=== PATIENT | female | born 1955 | race Caucasian/White ===

== ENCOUNTER 2016-10-22 05:21 | Inpatient (IN) | payer OTHER ==
--- NOTE | 2016-10-06 16:47 | NUR ---
JOINT REPLACEMENT PREOP CLASS PATIENT ATTENDED JOINT REPLACEMENT PREOP CLASS. CASE MANAGEMENT CONTACT INFORMATION PROVIDED. EDUCATION WAS PROVIDED REGARDING WHAT TO EXPECT BEFORE, DURING AND AFTER SURGERY. INCLUDING: OVERVIEW OF ANATOMY AND PHYSIOLOGY HOSPITAL TREATMENT SCHEDULE THERAPY DEMONSTRATION CASE MANAGEMENT RESPONSIBILITIES DISCHARGE PLANNING EQUIPMENT NEEDS JOINT REPLACEMENT WORKBOOK ANTI-COAGULATION SURGERY STRONG NUTRITIONAL PROTOCOL DISCHARGE INSTRUCTIONS [facility] PATIENT PORTAL, WITH INSTRUCTIONS CJR AND PREOP SURVERY PREOP BATHING- CHG GIVEN ALL PATIENT'S QUESTIONS ANSWERED TO THEIR SATISFACTION. PATIENTS AND COACHES ENCOURAGED TO CALL WITH ANY ADDITIONAL QUESTIONS OR CONCERNS. CM FOLLOWING FOR TRANSITIONAL CARE PLANNING NEEDS DURING HOSPITALIZATION.
[~2016-10-22] VITALS: Ht 177.8 cm; Wt 79.8 kg
[2016-10-22] VITALS (23 sets, daily range): BP systolic 98–128; BP diastolic 54–69; PULSE 56–88; RESP 14–20; TEMP 97.2–97.6; O2SAT 90–98; Ht 177.8 cm; Wt 79.8 kg
[~2016-10-22 05:21] MED LIST: ACET-2890 PO; ASCO-296 PO; ASPI-730 PO; CHOL100092 PO; DILT120C47 PO; HYDR-4246 PO; LEVO100T4 PO; NITR0.4T SL; POLY17PO6 PO; VITA1CAP PO; ZOLP5TAB2 PO
--- OUTSIDE RECORDS SUMMARY | 2016-10-22 05:26 | XMS REPORT ---
Author Author [facility]. Organization [facility] Address [address] [place] [address] Phone [phone] Summary purpose CCDA Sent to [facility] Chief Complaint and Reason for Visit No authorized Reason for Visit (Admitting Diagnosis) is available for this visit. Problem list No authorized problems tracked for continuity of care are available for this visit. Encounters No authorized problems tracked for encounter diagnoses are available for this visit. Medications No medications recorded for this patient visit Allergies, adverse reactions, alerts Allergen Category Ingredient Status Reaction Severity Onset No Known Allergies No Known Allergies No Known Allergies Active Immunizations No immunizations recorded for this patient visit Relevant diagnostic tests and/or laboratory data RESULTS Chemistry Group [id number]:00:00 Result Normal Range Units Total Protein 6.6 6.3-8.2 g/dl Albumin L 3.2 3.5-5.0 g/dl Alk Phos 82 38-126 U/L AST 23 14-36 U/L ALT 25 11-66 U/L T Bili .8 0.2-1.3 mg/dl D Bili 0.0 0.0-0.3 mg/dl I Bili .4 0.0-1.1 mg/dl History of procedures Procedure Code Code Type Description Date Performed Performing Physician 98724 CPT-4 HEPATIC FUNCTION PANEL 03-04-2016 KIRT GARCIA Functional status No functional or cognitive status observations are available for this visit. Vital signs No authorized vital signs are available for this visit. Social history No Social History or smoking status observations were recorded for this visit. ( Unknown if ever smoked.) Treatment Plan No treatment plan text is available for this visit. Hospital discharge instructions No discharge instruction text is available for this visit.
--- OUTSIDE RECORDS SUMMARY | 2016-10-22 05:26 | XMS REPORT ---
Author Author [facility]. Organization [facility] Address [address] [place] [address] Phone [phone] Summary purpose CCDA Sent to [facility] Chief Complaint and Reason for Visit No [...] visit Relevant diagnostic tests and/or laboratory data No authorized results are available for this patient visit History of procedures No procedures recorded for this patient visit. Functional status No functional or cognitive status [...]
--- OUTSIDE RECORDS SUMMARY | 2016-10-22 05:26 | XMS REPORT ---
Author Author [facility] Organization [facility] Address [address] [place] [address] Phone [phone] Summary purpose CCDA Sent to [facility] Chief Complaint and Reason for Visit Admit Diagnosis 1 MICROSCOPIC HEMATURIA Problem list No authorized problems tracked for continuity of care are available for this visit. Encounters No authorized problems tracked for encounter diagnoses are available for this visit. Medications No home medications recorded for this patient visit Allergies, adverse reactions, alerts Allergen Category Ingredient Status Reaction Severity Onset No Known Allergies No Known Allergies No Known Allergies Active Immunizations No immunizations recorded for this patient visit Relevant diagnostic tests and/or laboratory data RESULTS Urinalysis [id number]:45:00 Result Normal Range Units Site Voided Result Amended on 2014-12-21 at 14:34:00. Previous status was FR. Color Yellow Result Amended on 2014-12-21 at 14:34:00. Previous status was FR. Urine Appearance Slightly cloudy Specific [place] 1.015 1.005-1.030 Result Amended on 2014-12-21 at 14:34:00. Previous status was FR. pH 7.5 5.0-9.0 Result Amended on 2014-12-21 at 14:34:00. Previous status was FR. Protein Negative Negative Result Amended on 2014-12-21 at 14:34:00. Previous status was FR. Glucose Negative Negative Result Amended on 2014-12-21 at 14:34:00. Previous status was FR. Ketones Negative Negative Result Amended on 2014-12-21 at 14:34:00. Previous status was FR. Bilirubin Negative Negative Result Amended on 2014-12-21 at 14:34:00. Previous status was FR. Blood Negative Negative Result Amended on 2014-12-21 at 14:34:00. Previous status was FR. Nitrite Negative Negative Result Amended on 2014-12-21 at 14:34:00. Previous status was FR. Urobilinogen 0.2 0.20 mg/dl Result Amended on 2014-12-21 at 14:34:00. Previous status was FR. Leukocyte Negative Negative Result Amended on 2014-12-21 at 14:34:00. Previous status was FR. Urine RBC 0-2 Urinalysis with Microscopic [id number]:45:00 Result Normal Range Units Site Voided Result Amended on 2014-12-21 at 14:34:00. Previous status was FR. Color Yellow Result Amended on 2014-12-21 at 14:34:00. Previous status was FR. Urine Appearance Slightly cloudy Specific [place] 1.015 1.005-1.030 Result Amended on 2014-12-21 at 14:34:00. Previous status was FR. pH 7.5 5.0-9.0 Result Amended on 2014-12-21 at 14:34:00. Previous status was FR. Protein Negative Negative Result Amended on 2014-12-21 at 14:34:00. Previous status was FR. Glucose Negative Negative Result Amended on 2014-12-21 at 14:34:00. Previous status was FR. Ketones Negative Negative Result Amended on 2014-12-21 at 14:34:00. Previous status was FR. Bilirubin Negative Negative Result Amended on 2014-12-21 at 14:34:00. Previous status was FR. Blood Negative Negative Result Amended on 2014-12-21 at 14:34:00. Previous status was FR. Nitrite Negative Negative Result Amended on 2014-12-21 at 14:34:00. Previous status was FR. Urobilinogen 0.2 0.20 mg/dl Result Amended on 2014-12-21 at 14:34:00. Previous status was FR. Leukocyte Negative Negative Result Amended on 2014-12-21 at 14:34:00. Previous status was FR. Urine RBC 0-2 History of procedures Procedure Code Code Type Description Date Performed Performing Physician 79083 CPT-4 URINALYSIS AUTO W/SCOPE 12-21-2014 KIRT GARCIA Functional status No functional or [...]
--- OUTSIDE RECORDS SUMMARY | 2016-10-22 05:26 | XMS REPORT ---
Author Author [facility]. Organization [facility] Address [address] [place] [address] Phone [phone] Summary purpose CCDA Sent to [facility] Chief Complaint and Reason for Visit [...] Relevant diagnostic tests and/or laboratory data RESULTS CBC :25:00 Result Normal Range Units WBC 7.29 4.8-10.8 x103/mm3 Neutrophil % 51.0 50-70 % Lymph % 35.4 20-50 % [place] % H 10.3 1.0-9.0 % Eosinophil % 2.3 0-4 % Basophil % 1.0 0-2 % Neutrophil # 3.72 3.0-7.0 x103/mm3 Lymph # 2.58 1.0-4.0 x103/mm3 [place] # 0.75 0.0-0.8 x103/mm3 Eosinophil # 0.17 0-0.5 x103/mm3 Basophil # 0.07 0-0.2 x103/mm3 RBC L 3.69 4.20-5.40 x103/mm3 HGB L 11.4 12.0-16.0 g/dl HCT L 35.7 37.0-47.0 % MCV 96.7 81-99 FL MCH 30.9 27.0-31.0 pg MCHC L 31.9 32.0-36.0 g/dl RDW 13.5 12-15 % Platelet 271 150-400 x103/mm3 MPV H 10.3 6.0-10.0 FL Chemistry Group [id number]:00 Result Normal Range Units Sodium 141 134-145 mmol/L Potassium 4.5 3.6-5.0 mmol/L Chloride 104 98-107 mmol/L CO2 26 22-30 mmol/L Glucose 95 75-110 mg/dl BUN 17 9-20 mg/dl Creatinine L .76 0.8-1.7 mg/dl eGFR 77 ml/min. Total Protein 7.0 6.3-8.2 g/dl Albumin 3.6 3.5-5.0 g/dl Calcium 9.3 8.4-10.2 mg/dl Alk Phos 109 38-126 U/L AST 26 14-36 U/L ALT 26 11-66 U/L T Bili .4 0.2-1.3 mg/dl A/G Ratio 1.0 Ratio History of procedures No procedures recorded for [...]
--- OUTSIDE RECORDS SUMMARY | 2016-10-22 05:26 | XMS REPORT ---
Author Author [facility]. Organization [facility] Address [address] [place] [address] Phone [phone] Summary purpose CCDA Sent to [facility] Chief Complaint and Reason for Visit [...] for this patient visit History of procedures Procedure Code Code Type Description Date Performed Performing Physician 57366 CPT-4 ROUTINE VENIPUNCTURE 05-27-2015 KIRT GARCIA Functional status No functional or [...]
--- OUTSIDE RECORDS SUMMARY | 2016-10-22 05:27 | XMS REPORT ---
Author Author [facility]. Organization [facility] Address [address] [place] [address] Phone [phone] Summary purpose CCDA Sent to [facility] Chief Complaint and Reason for Visit No [...] Code Type Description Date Performed Performing Physician 18599 CPT-4 PT EVALUATION 04-05-2015 MADIHA LAINEZ [facility] 23382 CPT-4 ELECTRICAL STIMULATION 04-05-2015 [facility] 25568 CPT-4 ULTRASOUND THERAPY 04-05-2015 [facility] 61649 CPT-4 ELECTRICAL STIMULATION 04-08-2015 [facility] [place] [address] CPT-4 ELECTRICAL STIMULATION 04-11-2015 [facility] 82014 CPT-4 ULTRASOUND THERAPY 04-08-2015 [facility] 18907 CPT-4 ULTRASOUND THERAPY 04-11-2015 [facility] Functional status No functional or cognitive status [...]
--- OUTSIDE RECORDS SUMMARY | 2016-10-22 05:27 | XMS REPORT ---
Author Author [facility]. Organization [facility] Address [address] [place] [address] Phone [phone] Summary purpose CCDA Sent to [facility] Chief Complaint and Reason for Visit [...]
--- OUTSIDE RECORDS SUMMARY | 2016-10-22 05:27 | XMS REPORT ---
Author Author [facility] Organization [facility] Address [address] [place] [address] Phone [phone] Summary purpose CCDA Sent to [facility] Chief Complaint and Reason for Visit No [...] diagnostic tests and/or laboratory data RESULTS CBC :40:00 Result Normal Range Units WBC 5.38 4.8-10.8 x103/mm3 Neutrophil % L 47.0 50-70 % Lymph % 42.0 20-50 % [place] % 8.9 1.0-9.0 % Eosinophil % 1.5 0-4 % Basophil % 0.6 0-2 % Neutrophil # L 2.53 3.0-7.0 x103/mm3 Lymph # 2.26 1.0-4.0 x103/mm3 [place] # 0.48 0.0-0.8 x103/mm3 Eosinophil # 0.08 0-0.5 x103/mm3 Basophil # 0.03 0-0.2 x103/mm3 RBC 4.27 4.20-5.40 x103/mm3 HGB 12.8 12.0-16.0 g/dl HCT 40.2 37.0-47.0 % MCV 94.1 81-99 FL MCH 30.0 27.0-31.0 pg MCHC L 31.8 32.0-36.0 g/dl RDW 13.6 12-15 % Platelet 241 150-400 x103/mm3 MPV 9.7 6.0-10.0 FL Chemistry Group [id number]:00 Result Normal Range Units Sodium 144 134-145 mmol/L Potassium 4.6 3.6-5.0 mmol/L Chloride 102 98-107 mmol/L CO2 27 22-30 mmol/L Glucose 90 75-110 mg/dl BUN 15 9-20 mg/dl Creatinine L .79 0.8-1.7 mg/dl eGFR 74 ml/min. Calcium 9.4 8.4-10.2 mg/dl Special Chemistry Group [id number]:00 Result Normal Range Units TSH 1.65 0.50-6.00 uIU/mL History of procedures No procedures recorded for [...]
--- OUTSIDE RECORDS SUMMARY | 2016-10-22 05:27 | XMS REPORT ---
Author Author [facility]. Organization [facility] Address [address] [place] [address] Phone [phone] Summary purpose CCDA Sent to [facility] Chief Complaint and Reason for Visit Admit Diagnosis 1 CARDIAC DYSRHYTHMIAS NEC Problem list No authorized problems tracked for [...] diagnostic tests and/or laboratory data RESULTS CBC :20:00 Result Normal Range Units WBC 6.28 4.8-10.8 x103/mm3 Neutrophil % 55.0 50-70 % Lymph % 34.2 20-50 % [place] % 8.6 1.0-9.0 % Eosinophil % 1.9 0-4 % Basophil % 0.3 0-2 % Neutrophil # 3.45 3.0-7.0 x103/mm3 Lymph # 2.15 1.0-4.0 x103/mm3 [place] # 0.54 0.0-0.8 x103/mm3 Eosinophil # 0.12 0-0.5 x103/mm3 Basophil # 0.02 0-0.2 x103/mm3 RBC L 4.07 4.20-5.40 x103/mm3 HGB 12.5 12.0-16.0 g/dl HCT 38.5 37.0-47.0 % MCV 94.6 81-99 FL MCH 30.7 27.0-31.0 pg MCHC 32.5 32.0-36.0 g/dl RDW 14.1 12-15 % Platelet 231 150-400 x103/mm3 MPV 10.0 6.0-10.0 FL Chemistry Group :20:00 Result Normal Range Units Sodium 143 134-145 mmol/L Potassium 4.2 3.6-5.0 mmol/L Chloride 106 98-107 mmol/L CO2 27 22-30 mmol/L Glucose 91 75-110 mg/dl BUN 20 9-20 mg/dl Creatinine .8 0.8-1.7 mg/dl Calcium 9.3 8.4-10.2 mg/dl Special Chemistry Group [id number]:00 Result Normal Range Units TSH 0.97 0.50-6.00 uIU/mL History of procedures Procedure Code Code Type Description Date Performed Performing Physician 84667 CPT-4 METABOLIC PANEL TOTAL CA 12-17-2014 KIRT GARCIA 12826 CPT-4 ASSAY THYROID STIM HORMONE 12-17-2014 KIRT GARCIA 50706 CPT-4 COMPLETE CBC AUTOMATED 12-17-2014 KIRT GARCIA Functional status No functional or [...]
--- OUTSIDE RECORDS SUMMARY | 2016-10-22 05:27 | XMS REPORT ---
Author Author [facility]. Organization [facility] Address [address] [place] [address] Phone [phone] Summary purpose CCDA Sent to [facility] Chief Complaint and Reason for [...] diagnostic tests and/or laboratory data RESULTS CBC :10:00 Result Normal Range Units WBC L 4.42 4.8-10.8 x103/mm3 Neutrophil % H 77.1 50-70 % Lymph % L 15.6 20-50 % [place] % 6.6 1.0-9.0 % Eosinophil % 0.5 0-4 % Basophil % 0.2 0-2 % Neutrophil # 3.41 3.0-7.0 x103/mm3 Lymph # L 0.69 1.0-4.0 x103/mm3 [place] # 0.29 0.0-0.8 x103/mm3 Eosinophil # 0.02 0-0.5 x103/mm3 Basophil # 0.01 0-0.2 x103/mm3 RBC 4.41 4.20-5.40 x103/mm3 HGB 13.6 12.0-16.0 g/dl HCT 41.3 37.0-47.0 % MCV 93.7 81-99 FL MCH 30.8 27.0-31.0 pg MCHC 32.9 32.0-36.0 g/dl RDW 13.9 12-15 % Platelet 211 150-400 x103/mm3 MPV 9.7 6.0-10.0 FL Chemistry Group :10:00 Result Normal Range Units Sodium 140 134-145 mmol/L Potassium 3.7 3.6-5.0 mmol/L Chloride 103 98-107 mmol/L CO2 26 22-30 mmol/L Glucose H 117 75-110 mg/dl BUN 18 9-20 mg/dl Creatinine .84 0.8-1.7 mg/dl eGFR 69 ml/min. Total Protein 7.7 6.3-8.2 g/dl Albumin 3.8 3.5-5.0 g/dl Calcium 8.7 8.4-10.2 mg/dl Alk Phos 120 38-126 U/L AST H 82 14-36 U/L ALT 47 11-66 U/L T Bili H 1.6 0.2-1.3 mg/dl A/G Ratio 1.0 Ratio Special Chemistry Group :10:00 Result Normal Range Units Troponin I < 0.06 ng/ml NEGATIVE - 0.06-0.30 ng/ml INCONCLUSIVE - 0.31-0.64 ng/ml; Suggest Repeating in 2-4 hours POSITIVE - >0.64 ng/ml; Probable AMI History of procedures Procedure Code Code Type Description Date Performed Performing Physician 04061 CPT-4 COMPLETE CBC, AUTOMATED 02-26-2016 LISA CEDEÑO 50883 CPT-4 COMPREHEN METABOLIC PANEL 02-26-2016 LISA CEDEÑO 52563 CPT-4 ASSAY OF TROPONIN, QUANT 02-26-2016 LISA CEDEÑO Functional status No functional or cognitive status [...]
--- OUTSIDE RECORDS SUMMARY | 2016-10-22 05:27 | XMS REPORT | Continuity of Care Document ---
Author Author [facility] Organization [facility] Address Unknown Phone Unavailable Allergies Active Description Code Type Severity Reaction Onset Reported/Identified Relationship to Patient Clinical Status Yes No Known Allergies 745832 3 N/A N/A Yes No Known Allergies 45196238 NK N/A N/A 11/11/2012 Confirmed or Verified Medications Problems Date Dx Coded Attending Type Code Diagnosis Diagnosed By 11/11/2012 KIRT WORRELL MD 211.3 BENIGN NEOPLASM LG BOWEL 11/11/2012 KIRT WORRELL MD 455.6 HEMORRHOIDS NOS 11/11/2012 KIRT WORRELL MD 562.10 DIVERTICULO COLON NO HEM 11/11/2012 KIRT WORRELL MD 569.89 INTESTINAL DISORDERS NEC 11/11/2012 KIRT WORRELL MD V76.51 SCREENING MAL NASEEM COLON 12/17/2014 KIRT WORRELL MD 427.89 CARDIAC DYSRHYTHMIAS NEC 12/21/2014 MÓNICA ARANA, SARAI Venegas 599.72 MICROSCOPIC HEMATURIA 04/20/2015 MIGEL ROMERO MD, MADIHA Venegas M79.603 Pain in arm, unspecified 05/27/2015 KIRT WORRELL MD Z00.6 Encntr for exam for nrml cmprsn and ctrl in cln[facility] prog 06/04/2015 W M25.512 Left shoulder pain 08/06/2015 W M25.512 Left shoulder pain 12/24/2015 KIRT WORRELL MD E05.00 Thyrotoxicosis w diffuse goiter w/o thyrotoxic crisis 12/24/2015 KIRT WORRELL MD N20.9 Urinary calculus, unspecified 12/24/2015 KIRT WORRELL MD Z90.5 Acquired absence of kidney 01/09/2016 Kirt Worrell Ot N64.59 OTHER SIGNS AND SYMPTOMS IN BREAST 02/26/2016 LISA PERRY D R10.84 Generalized abdominal pain 03/04/2016 KIRT WORRELL MD R10.84 Generalized abdominal pain 05/15/2016 Kirt Worrell Ot N64.59 OTHER SIGNS AND SYMPTOMS IN BREAST Procedures Code [place] [address] COLONOSCOPY AND BIOPSY KIRT WORRELL MD 11/11/2012 56841 LESION REMOVE COLONOSCOPY KIRT WORRELL MD 11/11/2012 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 CITRATE INJECITON KIRT WORRELL MD 11/11/2012 81328 METABOLIC PANEL TOTAL CA KIRT WORRELL MD 12/17/2014 88589 ASSAY THYROID STIM HORMONE KIRT WORRELL MD 12/17/2014 65705 COMPLETE CBC, AUTOMATED KIRT WORRELL MD 12/17/2014 08665 URINALYSIS, AUTO W/SCOPE KIRT WORRELL MD 12/21/2014 83943 PT EVALUATION MIGEL ROMERO MD, MADIHA Venegas 04/05/2015 04908 ELECTRICAL STIMULATION MIGEL ROMERO MD, MADIHA Venegas 04/05/2015 27705 ULTRASOUND THERAPY MIGEL ROMERO MD, MADIHA Venegas 04/05/2015 07472 ELECTRICAL STIMULATION MIGEL ROMERO MD, MADIHA Venegas 04/08/2015 74499 ULTRASOUND THERAPY MIGEL ROMERO MD, MADIHA Venegas 04/08/2015 72514 ELECTRICAL STIMULATION MIGEL ROMERO MD, MADIHA Venegas 04/11/2015 84522 ULTRASOUND THERAPY MIGEL ROMERO MD, MADIHA Venegas 04/11/2015 04720 ROUTINE VENIPUNCTURE KIRT WORRELL MD 05/27/2015 20579 X-RAY EXAM OF SHOULDER 06/04/2015 41017 OFFICE/OUTPATIENT VISIT NEW 06/04/2015 95348 METABOLIC PANEL TOTAL CA KIRT WORRELL MD 12/24/2015 96543 ASSAY THYROID STIM HORMONE KIRT WORRELL MD 12/24/2015 98411 COMPLETE CBC, AUTOMATED KIRT WORRELL MD 12/24/2015 00210 COMPREHEN METABOLIC PANEL PRABHAKAR PERRYI L 02/26/2016 25360 ASSAY OF TROPONIN, QUANT GALA ARANA LISA Lou 02/26/2016 63275 COMPLETE CBC, AUTOMATED GALA ARANA LISA Blake 02/26/2016 67319 HEPATIC FUNCTION PANEL JOSE LEE, KIRT R 03/04/2016 Results Test Result Range CBC - 05/03/12 11:02 MEAN CELL HGB 30.1 pg 27.0-33.0 MEAN CELL HGB CONCENTRATION 32.0 g/dl 32.0-36.0 MEAN CELL VOLUME 94.1 fl 80.0-100.0 RED BLOOD CELL 4.38 m/cumm 4.00-6.00 RED CELL DISTRIBUTION WIDTH 14.3 % 11.0- 15.6 WHITE BLOOD CELL 7.6 k/cumm 5.0-10.0 HEMOGLOBIN 13.2 gm/dL 12.0-16.0 HEMATOCRIT 41.2 % 37.0-47.0 PLATELET COUNT 231 k/cumm 150-450 METABOLIC PANEL, BASIC - 05/03/12 11:02 POTASSIUM 3.9 mmol/L 3.5-5.3 EST GFR (MDRD) > 60 mL/min > 59 ANION GAP 8 mmol/L 5-15 EST CrCl (CG) > 60 mL/min > 59 GLUCOSE 91 mg/dL 70-99 CALCIUM 9.2 mg/dL 8.5-10.1 BLOOD UREA NITROGEN 14 mg/dL 7-20 CREATININE 0.9 mg/dL 0.6-1.0 SODIUM 143 mmol/L 135-148 CHLORIDE 108 mmol/L 98-110 CARBON DIOXIDE 27 mmol/L 21-32 LIPID PANEL - 05/03/12 11:02 CHOLESTEROL/HDL RATIO 5.0 < 5.0 LDL CHOLESTEROL 106 mg/dL < 100 VLDL CHOLESTEROL 25 mg/dL < 30 TRIGLYCERIDES 123 mg/dL < 150 CHOLESTEROL 164 mg/dL < 200 HDL CHOLESTEROL 33 mg/dL > 39 THYROID STIM HORMONE (TSH) - 05/03/12 11:02 THYROID STIM HORMONE (TSH) 1.98 uIU/mL 0.34-4.82 Basic Metabolic Panel - 12/17/14 14:06 Sodium 143 MMOLL 134-145 Potassium 4.2 MMOLL 3.6-5.0 Chloride 106 MMOLL 98-107 CO2 27 MMOLL 22-30 Glucose 91 MG/DL 75-110 BUN 20 MG/DL 9-20 Creatinine .8 MG/DL 0.8-1.7 Calcium 9.3 MG/DL 8.4-10.2 CBC - 12/17/14 14:06 Eos # 0.12 x10^3 0-0.5 Eos % 1.9 % 0-4 HCT 38.5 % 37.0-47.0 HGB 12.5 G/DL 12.0-16.0 Lymph # 2.15 x10^3 1.0-4.0 Lymph % 34.2 % 20-50 MCH 30.7 PG 27.0-31.0 MCHC 32.5 G/DL 32.0-36.0 MCV 94.6 FL 81-99 Shannon # 0.54 x10^3 0.0-0.8 [place] % 8.6 % 1.0-9.0 MPV 10.0 FL 6.0-10.0 Platelet 231 x10^3 150-400 RBC 4.07 x10^3 4.20-5.40 RDW 14.1 % 12-15 WBC 6.28 x10^3 4.8-10.8 Baso # 0.02 x10^3 0-0.2 Baso % 0.3 % 0-2 Neut % 55.0 % 50-70 Neut # 3.45 x10^3 3.0-7.0 TSH - 12/17/14 14:45 TSH 0.97 UIUML 0.50-6.00 Basic Metabolic Panel - 12/24/15 14:10 Sodium 144 MMOLL 134-145 Potassium 4.6 MMOLL 3.6-5.0 Chloride 102 MMOLL 98-107 CO2 27 MMOLL 22-30 Glucose 90 MG/DL 75-110 BUN 15 MG/DL 9-20 Creatinine .79 MG/DL 0.8-1.7 Calcium 9.4 MG/DL 8.4-10.2 EGFR 74 MLMIN TSH - 12/24/15 14:10 TSH 1.65 UIUML 0.50-6.00 CBC - 12/24/15 14:11 Eos # 0.08 x10^3 0-0.5 Eos % 1.5 % 0-4 HCT 40.2 % 37.0-47.0 HGB 12.8 G/DL 12.0-16.0 Lymph # 2.26 x10^3 1.0-4.0 Lymph % 42.0 % 20-50 MCH 30.0 PG 27.0-31.0 MCHC 31.8 G/DL 32.0-36.0 MCV 94.1 FL 81-99 [place] # 0.48 x10^3 0.0-0.8 [place] % 8.9 % 1.0-9.0 MPV 9.7 FL 6.0-10.0 Platelet 241 x10^3 150-400 RBC 4.27 x10^3 4.20-5.40 RDW 13.6 % 12-15 WBC 5.38 x10^3 4.8-10.8 Baso # 0.03 x10^3 0-0.2 Baso % 0.6 % 0-2 Neut % 47.0 % 50-70 Neut # 2.53 x10^3 3.0-7.0 CBC - 02/26/16 15:35 Eos # 0.02 x10^3 0-0.5 Eos % 0.5 % 0-4 HCT 41.3 % 37.0-47.0 HGB 13.6 G/DL 12.0-16.0 Lymph # 0.69 x10^3 1.0-4.0 Lymph % 15.6 % 20-50 MCH 30.8 PG 27.0-31.0 MCHC 32.9 G/DL 32.0-36.0 MCV 93.7 FL 81-99 Shannon # 0.29 x10^3 0.0-0.8 [place] % 6.6 % 1.0-9.0 MPV 9.7 FL 6.0-10.0 Platelet 211 x10^3 150-400 RBC 4.41 x10^3 4.20-5.40 RDW 13.9 % 12-15 WBC 4.42 x10^3 4.8-10.8 Baso # 0.01 x10^3 0-0.2 Baso % 0.2 % 0-2 Neut % 77.1 % 50-70 Neut # 3.41 x10^3 3.0-7.0 Comprehensive Metabolic Panel - 02/26/16 15:44 Sodium 140 MMOLL 134-145 Potassium 3.7 MMOLL 3.6-5.0 Chloride 103 MMOLL 98-107 CO2 26 MMOLL 22-30 Glucose 117 MG/DL 75-110 BUN 18 MG/DL 9-20 Creatinine .84 MG/DL 0.8-1.7 Calcium 8.7 MG/DL 8.4-10.2 T Bili 1.6 MG/DL 0.2-1.3 T. Protein 7.7 G/DL 6.3-8.2 A/G Ratio 1.0 RATIO Albumin 3.8 G/DL 3.5-5.0 Alk Phos 120 U/L 38-126 ALT 47 U/L 11-66 AST 82 U/L 14-36 EGFR 69 MLMIN Troponin I - 02/26/16 15:55 Troponin I < 0.06 NG/ML Hepatic Function Panel - 03/05/16 09:05 I Bili .4 MG/DL 0.0-1.1 T Bili .8 MG/DL 0.2-1.3 T. Protein 6.6 G/DL 6.3-8.2 Albumin 3.2 G/DL 3.5-5.0 Alk Phos 82 U/L 38-126 ALT 25 U/L 11-66 AST 23 U/L 14-36 D Bili 0.0 MG/DL 0.0-0.3 CBC - 09/29/16 09:00 Eos # 0.17 x10^3 0-0.5 Eos % 2.3 % 0-4 HCT 35.7 % 37.0-47.0 HGB 11.4 G/DL 12.0-16.0 Lymph # 2.58 x10^3 1.0-4.0 Lymph % 35.4 % 20-50 MCH 30.9 PG 27.0-31.0 MCHC 31.9 G/DL 32.0-36.0 MCV 96.7 FL 81-99 Shannon # 0.75 x10^3 0.0-0.8 Shannon % 10.3 % 1.0-9.0 MPV 10.3 FL 6.0-10.0 Platelet 271 x10^3 150-400 RBC 3.69 x10^3 4.20-5.40 RDW 13.5 % 12-15 WBC 7.29 x10^3 4.8-10.8 Baso # 0.07 x10^3 0-0.2 Baso % 1.0 % 0-2 Neut % 51.0 % 50-70 Neut # 3.72 x10^3 3.0-7.0 Comprehensive Metabolic Panel - 09/29/16 09:37 Sodium 141 MMOLL 134-145 Potassium 4.5 MMOLL 3.6-5.0 Chloride 104 MMOLL 98-107 CO2 26 MMOLL 22-30 Glucose 95 MG/DL 75-110 BUN 17 MG/DL 9-20 Creatinine .76 MG/DL 0.8-1.7 Calcium 9.3 MG/DL 8.4-10.2 T Bili .4 MG/DL 0.2-1.3 T. Protein 7.0 G/DL 6.3-8.2 A/G Ratio 1.0 RATIO Albumin 3.6 G/DL 3.5-5.0 Alk Phos 109 U/L 38-126 ALT 26 U/L 11-66 AST 26 U/L 14-36 EGFR 77 MLMIN Encounters ACCT No. Visit Date/Time Discharge Status Pt. Type Provider Facility Loc./Unit Complaint [id number] 05/03/2012 10:25:00 2011 20:30:00 DIS Outpatient Martin LEE, Marcus Magana [facility]
[2016-10-22] MEDS ORDERED: METOCLOPRAMIDE 10mg/2ml INJECTION IV ONE (06:00)
[2016-10-22] MEDS ORDERED: FAMOTIDINE 20mg IVPB 50 ML IV ONE (06:00)
[2016-10-22] MEDS ORDERED: CEFAZOLIN 2 GM VIAL IV ONE (06:00)
[2016-10-22] MEDS ORDERED: MELOXICAM 15 MG TABLET PO ONE (06:00)
[2016-10-22] MEDS ORDERED: LIDOCAINE 1% (10mg/ml) 2ml SDV SQ ONE (06:00)
[2016-10-22] MEDS ORDERED: TRANEXAMIC ACID 1,000 MG in NORMAL SALINE 100 ML IV ONE ×2 (06:00→07:00)
[2016-10-22] MEDS ORDERED: ONDANSETRON 4mg/2ml INJECTION IV ONE (07:00)
[2016-10-22] MEDS ORDERED: ACETAMINOPHEN 500 MG TABLET PO ONE (07:00)
[2016-10-22] MEDS ORDERED: DEXAMETHASONE 4mg/ml - 1ml INJECTION IV ONE (07:00)
[2016-10-22] MEDS ORDERED: LR 1,000 ML IV SCH (07:00)
[2016-10-22] MEDS ORDERED: NOZIN NASAL SWAB NS ONE ×2 (07:00→09:30)
--- NOTE | 2016-10-22 07:07 | ANESPREOP ---
Anesthesia Record Date and Time DATE: 10/22/16 TIME: 07:02 Proposed Surgical Procedure LT ANANDA NPO since: mn Allergies: Coded Allergies: No Known Drug Allergies (Verified Allergy, Unknown, 07/01/10) Ht/Wt/BMI Height: 5 ' 10.00 " Weight: 76.500 kg BMI: 24.2 kg/m2 Vital Signs Date Time Temp Pulse Resp B/P Pulse Ox O2 Delivery O2 Flow Rate FiO2 10/22/16 06:10 68 16 10/22/16 05:42 97.6 128/69 98 Room Air Medications Inpatient Medications Current Medications Medications (Trade) Dose Ordered Sig/Susana Start Time Stop Time Status Last Admin Dose Admin Lactated Ringer's (Lactated Ringers) 1,000 ml @ 50 mls/hr Q20H 10/22/16 07:00 10/22/16 06:53 50 MLS/HR Acetaminophen (Acetaminophen) 650 Mg Tablet.er, 2 TAB PO BID, (Reported) Last Taken: on 10/21/16 0800 Ascorbic Acid (Vitamin C) 500 Mg Tablet, 500 MG PO DAILY, (Reported) Last Taken: on 10/08/16 Aspirin (Aspirin) 325 Mg Tablet, 325 MG PO EVERY OTHER DAY, (Reported) Last Taken: on 10/07/16 Cholecalciferol (Vitamin D3) (Vitamin D3) 1,000 Unit Capsule, 1 CAP PO DAILY, (Reported) Last Taken: on 10/21/16 0800 Diltiazem HCl (Cartia Xt) 120 Mg Cap.er.24h, 120 MG PO DAILY, (Reported) Last Taken: on 10/22/16 0430 Hydrocodone/Acetaminophen ([place] 5-325 Tablet) 5 -325 Tablet, 1 TAB PO Q6HPRN, (Reported) Last Taken: on 10/21/16 1900 Levothyroxine Sodium (Synthroid) 100 Mcg Tablet , 1 TAB PO ACB, (Reported) BEST IF TAKEN BEFORE BREAKFAST Last Taken: on 10/22/16 0430 Nitroglycerin (Nitrostat) 0.4 Mg Tablet, 1 TAB SL Q5MIN PRN for CHEST PAIN, (Reported) 1 TAB SL PRN FOR CHEST PAIN, MAY REPEAT UP TO EVERY 5 MINUTES PRN CONT CHEST PAIN, UP TO A TOTAL OF 3 DOSES IN 15 MINUTES Last Taken: on Unknown Date & Time Polyethylene Glycol 3350 (Miralax) 17 Gm Powd.pack, 1 PACKET PO DAILY PRN for CONSTIPATION, (Reported) Last Taken: on 10/21/161899 Vitamin B Complex (Vitamin B Complex) 1 Each Capsule, 1 CAP PO DAILY, (Reported) Last Taken: on 10/08/16 Zolpidem Tartrate (Ambien) 5 Mg Tablet, 5 MG PO HS PRN for INSOMNIA, (Reported) Take 1 tablet, by mouth, 1 time a day (at BEDTIME). Last Taken: on 10/21/161899 Currently on Beta Hawk: No Medical/Surgical History Anesthesia PMH: Reports: Anesthesia Reactions (REQUESTS SPINAL-SLOW TO WAKE AFTER DANILO THEN N/V), Cardiac Arrythmia (patient state history of heart flutter , and MVP (asymptomatic)), Thyroid Disease (HX GRAVES, TREATED WITH RADIOIODINE PER H&P) Smoking Status: Never smoker Use Chewing Tobacco?: No Second Hand Exposure: No Substance Use Type: does not use Alcohol Intake: none HX of Last Menstrual Period: HYST Past Surgical History Orthopedic Surgeries: Abdominal Surgeries: Yes - DANILO/TUBAL Genitourinary Surgeries: Yes - LT NEPHRECTOMY; CYSTOCELE W/ VAG HYST Cardiac Surgeries: Yes - HEART CATH 2011 Endocrine Surgeries: Reproductive Surgeries: Yes - LT OVARIAN CYSTECTOMY; VAG HYST Neurological Surgeries: Ear Surgeries: Nose Surgeries: Throat Surgeries: Other Surgeries: Yes - LT OVARIAN CYSTECTOMY; VAG HYST Anesthesia Adverse Reactions: FOUND none Family Hx of Anesthesia Advers: none Hx of Motion Sickness: No Physical Exam Respiratory: Bilat breath sounds equal, Lungs clear Cardiovascular: FOUND Regular rate, rhythm Airway Assessment Mallampati Score: II TMD: 3 Fingerbreadths Neck Extension: Fair Overall Assessment: No Airway Concerns ASA: 2 Plan Anesthesia Plan: LMA, GETA Regional: Spinal Discussion Discussed risks/options/alternatives of anesthesia and questions answered. Patient consents. Nursing pain assessment noted. Present: Family Member Attestation Statement Prior to the delivery of any anesthetic medication, I examined the patient, developed the plan, obtained the patient's consent and discussed the risk and benefits of the procedure with the patient/guardian. SANTOS PALOMO CRNA October 22, 2016 07:06
[2016-10-22] MEDS ORDERED: MIDAZOLAM 2mg/2ml INJECTION IV ONE (07:28)
[2016-10-22] MEDS ORDERED: FENTANYL 100mcg/2ml INJECTION IV ONE (07:28)
[2016-10-22] MEDS ORDERED: LIDOCAINE 2% (20mg/ml) 5ml PF SDV ID ONE (07:30)
[2016-10-22] MEDS ORDERED: EPINEPHRINE 0.25 MG, BUPIVACAINE 0.25% 75 MG, MORPHINE SULFATE 15 MG, KETOROLAC 60 MG i... INJ ONE ×5 (08:00)
[2016-10-22] MEDS ORDERED: EPHEDRINE SULFATE 50mg/ml INJECTION IM ONE (08:04)
[2016-10-22] MEDS ORDERED: SALINE FLUSH 10ml SYRINGE IVF ONE (08:22)
[2016-10-22] MEDS ORDERED: PHENYLEPHRINE 10mg/ml INJECTION IV ONE (08:22)
[2016-10-22] MEDS ORDERED: VANCOMYCIN 1 GRAM INJECTION IV ONE (08:44)
--- NOTE | 2016-10-22 09:17 | PDOPERATE ---
Operative Report Date of Operation 10/22/16 Side: Left Preoperative Diagnosis: hip primary DJD Postoperative Diagnosis Same as preoperative diagnosis. Operation/Procedure: total hip arthroplasty (left) Surgeon Champ Shelton MD Cath Lab Technologist YASMEEN Teresa Complications None. Regional Block: Spinal Estimated Blood Loss See Anesthesia Record. Fluids Please See Anesthesia Record. Description of Operation Ms. Stock and her left hip were identified and marked in the the preoperative holding area. She was then brought back to the operating suite and proper anesthesia was administered. She was then positioned lateral on the operating table. The left lower extremity was then prepped and draped in my normal sterile fashion. Timeout was performed with all operating room personnel. A posterior approach was utilized. Approximately 10 cm incision was made in the skin and dissection carried down to the muscle fascia which was then split in line with skin incision. Charnley retractor was placed and the short external rotators were identified and tagged and detached. Capsulotomy was performed and the hip dislocated. A femoral neck osteotomy was performed approximately 1 cm proximal to the lesser trochanter. The head was removed and acetabulum exposed. Labrum was removed and sequentially reamed to a size 51 and placed a 52 cup in 20 of anteversion. A liner was then placed. The proximal femur was exposed and prepared with a cookie cutter followed by reaming and broaching to a size 7. With a 0 head she was stable but short we trialed again with a +5 head which felt good she was nice and stable with good leg length.. After thorough irrigation a final Secure Fit advanced size 7 stem with 127 neck was placed. A final +5 36 mm head was placed and the hip reduced. Betadine solution was allowed to sit in the wound for 3 minutes and fully irrigated out with normal saline. Joint cocktail was injected throughout soft tissue. TXA was allowed to sit in the wound for 5 minutes and fully irrigated out. The capsulotomy was repaired with Ethibond. Short external rotators were also repaired with Ethibond. 1 g of vancomycin powder was placed into the wound. The muscle fascia was then repaired with #1 Vicryl. I then left my system to close the subcutaneous tissue with 2-0 Vicryl followed by running 4-0 Monocryl skin followed by Dermabond and a sterile dressing. The patient with any placed back into supine position and taken to recovery room in the care of anesthesia. GIOVANNI SHELTON MD October 22, 2016 09:17
[2016-10-22] MEDS ORDERED: LORAZEPAM 1 MG TABLET PO PRN (09:30)
[2016-10-22] MEDS ORDERED: ONDANSETRON 4mg/2ml INJECTION IV PRN (09:30)
[2016-10-22] MEDS ORDERED: DiphenhydrAMINE 50 MG/ML INJECTION IV PRN (09:30)
[2016-10-22] MEDS ORDERED: ZOLPIDEM 5 MG TABLET PO PRN (09:30)
[2016-10-22] MEDS ORDERED: SENNOSIDES 8.6 MG TABLET PO PRN (09:30)
[2016-10-22] MEDS ORDERED: NAPROXEN 220 MG TABLET PO PRN (09:30)
[2016-10-22] MEDS ORDERED: NITROGLYCERIN 0.4 MG SUBLINGUAL TABLET SL PRN (09:30)
[2016-10-22] MEDS ORDERED: DiphenhydrAMINE 25 MG CAPSULE PO PRN (09:30)
[2016-10-22] MEDS ORDERED: PRN ORDERS MC (09:30)
--- NOTE | 2016-10-22 10:06 | ANESPO ---
Post-Op Note Date 10/22/16 Time: 10:05 Status Pt Participated in Evaluation: Pt participated in person Vital Signs Date Time Temp Pulse Resp B/P Pulse Ox O2 Delivery O2 Flow Rate FiO2 10/22/16 10:00 74 16 114/55 96 Room Air 10/22/16 09:55 97.4 Respiratory Function: Airway patent, Regular respirations Cardiovascular Function: Regular pulse Mental Status: Alert/oriented Pain Level Intensity: 0 Unable to Assess Pain Due To: INTRAOP Hydration: IV infusing Complications during Recovery None apparent Post-Anesthesia Notes moves lower extremeties Follow-Up Instructions Instructions Per Surgeon SANTOS PALOMO CRNA October 22, 2016 10:05
--- NOTE | 2016-10-22 10:10 | NUR ---
ARRIVAL PT TO ROOM 111 PER CART. PT ABLE TO TRANSFER SELF FROM CART TO BED. PT DENIES PAIN AT THIS TIME. VS STABLE. PT ON RA. DENIES SOA. MEPILEX TO LEFT HIP C/D/I. WILL CONTINUE TO MONTIOR.
--- NOTE | 2016-10-22 10:17 | DI ---
Indication: ITS.REASON: POSTOP PROCEDURE: PELVIS W/1 VIEW LT HIP: Encounter: Initial Comparison: None Findings: Postoperative changes of left total hip replacement are seen. There is expected postoperative subcutaneous gas. No evidence of hardware failure or acute fracture. No retained radiopaque surgical instruments or sponges seen. Impression: New left total hip prosthesis without evidence of immediate complication. .
[2016-10-22] MEDS: NORMAL SALINE 1,000 ML IV SCH ×2 (10:21→23:24)
--- NOTE | 2016-10-22 10:33 | NUR ---
CM CM IN TO VISIT WITH PT. SHE IS ALERT AND ORIENTED. HER SPOUSE IS PRESENT. PT PLANS TO DC HOME. SHE WILL DO OUTPT PT AT [facility]. SHE HAS FWW. SHE IS GIVEN CM CONTACT INFORMATION AND HIP KIT. GABINOE SCORE IS 8. Addendum: 10/22/16 at 1035 by ANDRZEJ THURMAN RN Amended: Links added.
[2016-10-22] MEDS ORDERED: NAPR-1119 PO (11:40)
[2016-10-22] MEDS ORDERED: ASPI-917 PO (11:40)
[2016-10-22] MEDS ORDERED: OXYC5TAB84 PO (11:40)
[2016-10-22] MEDS: OXYCODONE I.R. 5 MG TABLET PO PRN (12:06)
[2016-10-22] MEDS: ACETAMINOPHEN 325 MG TABLET PO SCH ×3 (12:49→21:09)
[2016-10-22] MEDS: NOZIN NASAL SWAB NS SCH ×2 (14:45→21:07)
[2016-10-22] MEDS: CEFAZOLIN 2 G in NORMAL SALINE 100 ML IV SCH ×2 (16:16→23:24)
--- NOTE | 2016-10-22 19:21 | NUR ---
STATUS PT A/O X3. UP WITH ASSIST OF ONE WITH WALKER AND GAIT BELT. PT COMPLAINS OF PAIN IN LEFT HIP PRN ROXICODONE GIVEN. PT ON RA. DENIES SOA. VOIDING WELL. TOLERATING REG DIET, DENIES NAUSEA. PT RESTING IN BED WITH ALARM. CALL LIGHT WITHIN REACH. WILL CONTINUE TO MONITOR.
[2016-10-22] MEDS: ASPIRIN *EC* 325mg TABLET PO SCH (21:09)
[2016-10-22] MEDS ORDERED: SENNOSIDES 8.6 MG TABLET PO SCH (22:00)
[2016-10-23] VITALS: BP 111/61; PULSE 74; RESP 16; TEMP 97.1; O2SAT 96
--- NOTE | 2016-10-23 02:50 | NUR ---
Pain Pt c/o pain at this time, describes as "burning." Requests pain medication. This RN contacts pt's primary RN, Lizy. She is unavailable at this time. Therefore, with her ok, this RN provides options of Aleve or Roxicodone to pt. Pt states, "I'm not supposed to have Ibuprofen. So, I'll take a roxicodone." RN administers 5mg per pt request. Encourages pt to call if pain does not improve as we can always provide additional pain medications. Pt verbalizes understanding.
--- NOTE | 2016-10-23 02:50 | NUR ---
SHIFT REPORT PT A/O X3. VITAL SIGNS STABLE ON RM AIR. UP WITH ASSIST OF ONE WITH WALKER AND GAIT BELT. AMBULATED THE HALLS THIS SHIFT. PRN ROXICODONE GIVEN FOR HIP PAIN. DENIES SOA AND NAUSEA. VOIDING WELL. TOLERATING REG DIET. PT RESTING IN BED WITH ALARM. CALL LIGHT WITHIN REACH. WILL CONTINUE TO MONITOR.
[2016-10-23] MEDS: OXYCODONE I.R. 5 MG TABLET PO PRN ×2 (02:53→10:32)
[2016-10-23 04:00] VITALS: BP 119/58; PULSE 72; RESP 16; TEMP 96.1; O2SAT 95
[2016-10-23] MEDS: NOZIN NASAL SWAB NS SCH ×2 (04:40→13:16)
[2016-10-23 05:18] LABS: HCT - HEMATOCRIT 30.3 % (36-46); HGB - HEMOGLOBIN 9.4 GM/DL (12-16); MEAN CORPUSCULAR HGB 30.2 UUG (26-34); MEAN CORPUSCULAR VOLUME 97.4 UM3 (80-100); RED BLOOD COUNT 3.11 M/MM3 (4.00-5.20); WBC - WHITE BLOOD COUNT 8.5 T/MM3 (4.5-11.0)
[2016-10-23 05:23] LABS: ANION GAP 8 MEQ/L (5-15); BUN/CREATININE RATIO 24 RATIO (6-26); CHLORIDE 109 MEQ/L (98-107); CO2 - CARBON DIOXIDE 26 MEQ/L (22-30); CREATININE 0.7 MG/DL (0.7-1.2); GLOMERULAR FILTRATION RATE 85; GLUCOSE 131 MG/DL (65-110); POTASSIUM 4.5 MEQ/L (3.6-5); SODIUM 143 MEQ/L (134-144)
[2016-10-23] MEDS ORDERED: TRANEXAMIC ACID 1000 MG/10 ML TOP ONE (06:00)
[2016-10-23] MEDS ORDERED: LEVOTHYROXINE 100 MCG TABLET PO SCH (06:30)
[2016-10-23 07:53] VITALS: BP 120/63; PULSE 73; RESP 18; TEMP 97.4; O2SAT 93
[2016-10-23] MEDS: ASPIRIN *EC* 325mg TABLET PO SCH (08:34)
[2016-10-23] MEDS: ACETAMINOPHEN 325 MG TABLET PO SCH ×2 (08:35→13:16)
[2016-10-23] MEDS ORDERED: DOCUSATE SODIUM 100 MG CAPSULE PO SCH (09:00)
[2016-10-23] MEDS ORDERED: ASCORBIC ACID 500 MG TABLET PO SCH (09:00)
[2016-10-23] MEDS ORDERED: POLYETHYL.GLYCOL 3350 PACKET 17gm PO SCH (09:00)
[2016-10-23] MEDS ORDERED: DILTIAZEM CD 120mg CAP (QD) PO SCH (09:00)
--- NOTE | 2016-10-23 09:07 | NUR ---
CM CM IN TO VISIT WITH PT. SHE IS ALERT AND ORIENTED. A YOUNG FEMALE FAMILY MEMBER IS PRESENT. PT PLANS TO RETURN HOME. SHE WILL DO OUTPT PT AT [facility]. SHE HAS FWW. HIP KIT WAS GIVEN. SHE IS GIVEN CM CONTACT INFORMATION. Addendum: 10/23/16 at 0907 by ANDRZEJ THURMAN RN Amended: Links added.
[2016-10-23 11:41] VITALS: BP 118/54; PULSE 68; RESP 18; TEMP 96.9; O2SAT 96
--- NOTE | 2016-10-23 12:01 | PDORTHOPN ---
Subjective Date DATE: 10/23/16 TIME: 11:59 Subjective Doing well without complaints. Objective Vital Signs Vital signs Vital Signs 10/23/16 10/23/16 10/23/16 10/23/16 00:00 04:00 07:53 11:41 Temp 97.1 96.1 97.4 96.9 Pulse 74 72 73 68 Resp 16 16 18 18 B/P 111/61 119/58 120/63 118/54 Pulse Ox 96 95 93 96 O2 Delivery Room Air Room Air Room Air Room Air Height (Feet): 5 Height (Inches): 10.00 Weight (Kilograms): 79.800 General General Appearance: No Acute Distress Respiratory (Brief) Respiratory Brief: FOUND: non-labored Cardiovascular (Brief) Cardiac: FOUND: calf easily compressible, calf soft, nontender, pedal pulses intact Surgical Site Incision: FOUND: Mepilex dressing intact, no drainage Neurologic (Brief) Neurological Brief: FOUND: neuro intact Laboratory Laboratory Laboratory Tests 10/23/16 04:05 Laboratory Tests 10/23/16 04:05 Assessment & Plan Problems: (1) Degenerative arthritis of hip Status: Acute Qualifiers: Osteoarthritis type: primary Laterality: left Qualified Codes: M16.12 - Unilateral primary osteoarthritis, left hip Assessment & Plan: Doing very well. Pain controlled. Plan on D/C today after therapy. Hospital Course Summary Disclaimer The visit summary below is not to be considered part of the above Progress Note. GIOVANNI BENITEZ MD October 23, 2016 12:01
--- NOTE | 2016-10-23 15:06 | NUR ---
DISCHARGE PATIENT IS ALERT AND ORIENTED X3. PATIENT VITALS ARE STABLE AND PATIENT IS ON ROOM AIR. PATIENT DISCHARGE INSTRUCTIONS INCLUDE: FOLLOW UP APPOINTMENTS, REASONS TO CALL DOCTOR AND/OR SEEK IMMEDIATE CARE, DRESSING/INCISION CARE, ACTIVITY/BATHING, DIET, DI FOR ORTHOPEDIC SURGERY, NEW MEDICATIONS, CONTINUED MEDICATIONS, STOPPED MEDICATIONS, SIGNS AND SYMPTOMS OF INFECTION. SCRIPT FOR ROXICODONE GIVEN TO PATIENT. PERSONAL BELONGINGS RETURNED AND ID BAND REMOVED. PATIENT AMBULATED TO FRONT ENTRANCE WITH THIS NURSE. PATIENT WAS TRANSPORTED HOME FOR SELF CARE BY DAUGHTER.
[2016-10-24] MEDS ORDERED: MILK OF MAGNESIA 30 ML SUSP PO SCH (08:00)
[2016-10-24] MEDS ORDERED: BISACODYL 10 MG SUPPOSITORY RECTALLY SCH (20:00)
== END 2016-10-23 15:06 | disposition home or self-care (01) | DRG 470 ==
LOC: SRG 05:21
PROVIDERS: ADMIT Orthopaedic Surgery; ATTEND Orthopaedic Surgery
PROC: 0SRB04A Replacement of Left Hip Joint with Ceramic on Polyethylene Synthetic Substitute, Uncemented, Open Approach (ICD-10-PCS; principal; 2016-10-22 08:06)
DX: M16.12 Unilateral primary osteoarthritis, left hip (principal); K58.9 Irritable bowel syndrome, unspecified; E03.9 Hypothyroidism, unspecified; Z90.5 Acquired absence of kidney
CPT/HCPCS: 36415; 80048; 85027